=== PATIENT | male | born 1965 | race Caucasian/White ===

== ENCOUNTER 2016-11-17 12:01 | Emergency (ER) | payer BC | END 2016-11-17 13:20 | disposition left against medical advice (07) | LOC: UCCORT 12:01 | DX: R69 Illness, unspecified (principal); Z53.21 Procedure and treatment not carried out due to patient leaving prior to being seen by health care provider ==

== ENCOUNTER 2017-08-08 07:09 | Emergency (ER) | payer BC, OTHER ==
[2017-08-08 07:27] VITALS: BP 133/72
[2017-08-08] MEDS ORDERED: Indomethacin CAP* 25 MG CAP PO ONE (08:01)
--- NOTE | 2017-08-08 08:06 | ED ---
Lower Extremity - HPI Summary HPI Summary: 52 yr old male with the complaint of left foot 1st MP join pain . The onset of his symptoms were two days ago . It woke him from sleep. He recalls no traumatic events. he denies a prior history of gout, but he has a history of kidney stones. the patient denies fever, chills. His pain is worse with movement, and is at rest a 4/10. - History of Current Complaint Chief Complaint: UCLowerExtremity Stated Complaint: LEFT FOOT PAIN Time Seen by Provider: 08/08/17 07:31 - Allergies/Home Medications Allergies/Adverse Reactions: Allergies Allergy/AdvReac Type Severity Reaction Status Date / Time Sulfa Antibiotics Allergy Severe VOMITS/,PASSES Verified 08/08/17 07:16 OUT Home Medications: Home Medications Oneil Derm Patch 08/08/17 [History] Ibuprofen TAB* [Motrin TAB* 600 MG] 600 mg PO Q6H PRN 08/08/17 [History Confirmed 08/08/17] PMH/Surg Hx/FS Hx/Imm Hx Cardiovascular History: Reports: Other Cardiovascular Problems/Disorders - VARICOSE VEINS BOTH LEGS-SEE DR. JERRY Respiratory History: Reports: Hx Asthma - USE INHALER History: Reports: Hx Kidney Stones - left Sensory History: Denies: Hx Contacts or Glasses, Hx Hearing Aid Opthamlomology History: Denies: Hx Contacts or Glasses - Surgical History Surgery Procedure, Year, and Place: TONSILLECTOMY ,. 2006 LASIK SURGERY [facility], [place]. 2006 VASECTOMY, [facility]. 2013-STENT PLACEMENT- LEFT KIDNEY Hx Anesthesia Reactions: No Infectious Disease History: No Infectious Disease History: Denies: Traveled Outside the [place] in Last 30 Days - Social History Alcohol Use: Occasionally Substance Use Type: Reports: None Smoking Status (MU): Never Smoked Tobacco Review of Systems Constitutional: Negative Negative: Fever, Chills Positive: Other - left foot 1st mp pain All Other Systems Reviewed And Are Negative: Yes Physical Exam Triage Information Reviewed: Yes Vital Signs On Initial Exam: Initial Vitals Temp Pulse Resp BP 98.2 F 85 20 133/72 08/08/17 07:24 08/08/17 07:24 08/08/17 07:24 08/08/17 07:24 Vital Signs Reviewed: Yes Appearance: Positive: Well-Appearing, No Pain Distress Head/Face: Positive: Normal Head/Face Inspection Eyes: Positive: EOMI ENT: Positive: Normal ENT inspection Respiratory/Lung Sounds: Positive: Clear to Auscultation, Breath Sounds Present Cardiovascular: Positive: RRR. Negative: Murmur Abdomen Description: Positive: Nontender Musculoskeletal: Positive: Strength/ROM Intact, Other - there is mild redness to the left foot 1st MP area with slight tenderness. Minimal swelling. No cellulitis. Neurological: Positive: Sensory/Motor Intact, Alert, Oriented to Person Place, Time, CN Intact II-III Psychiatric: Positive: Normal - Bety Coma Scale Best Eye Response: 4 - Spontaneous Best Motor Response: 6 - Obeys Commands Best Verbal Response: 5 - Oriented Diagnostics - Vital Signs Vital Signs Temp Pulse Resp BP 08/08/17 07:24 98.2 F 85 20 133/72 - Laboratory Lab Statement: Any lab studies that have been ordered have been reviewed, and results considered in the medical decision making process. Lower Extremity Course/Dx - Course Course Of Treatment: 52 yr old with gout. Indomethacin, DC home, FU PMD. - Diagnoses Provider Diagnoses: Gout Discharge - Discharge Plan Condition: Good Disposition: HOME Prescriptions: Indomethacin CAP* [Indocin CAP*] 25 mg PO TID PRN #14 cap PRN Reason: Pain - Moderate Patient Education Materials: Gout (ED) Referrals: Rosemary Jensen MD [Primary Care Provider] - 3 Days
--- NOTE | 2017-08-08 08:25 | RAD ---
Indication: Pain at the LEFT foot first metatarsal phalangeal joint since August 05, 2017. Comparison: November 10, 2004 Technique: AP, lateral, and oblique views LEFT foot. Report: Negative for fracture or malalignment. Polyarticular osteoarthritis with credit resolution representative mild osteophytosis and joint space narrowing at the first metatarsal phalangeal joint with similar findings at the talocrural and transverse tarsal joint. Small Achilles tendon insertion and plantar fascia origin heel spurs. Unremarkable soft tissue contours. IMPRESSION: Negative for fracture or radiographic stigmata of stress reaction. Polyarticular mild osteoarthritis.
== END 2017-08-08 08:47 | disposition home or self-care (01) ==
LOC: UCCORT 07:09
DX: M10.9 Gout, unspecified (principal); J45.909 Unspecified asthma, uncomplicated; I83.93 Asymptomatic varicose veins of bilateral lower extremities; Z88.2 Allergy status to sulfonamides; Z87.442 Personal history of urinary calculi
CPT/HCPCS: 99212; A9270-GY; G0463

== ENCOUNTER 2019-05-10 05:46 | Day surgery (SDC) | payer BC ==
[~2019-05-10 05:46] MED LIST: Buffered Lidocaine 1% SYRIN* 1 ML/SYRINGE INTRADERM ONE
[2019-05-10] MEDS ORDERED: Lactated Ringers 1000 ML Bag* 1,000 ML IV SCH (06:00)
[2019-05-10] MEDS ORDERED: ceFAZolin 2 GM in NS PREMIX(*) 2 GM/100 ML BAG IVPB ONE (06:11)
[2019-05-10] MEDS ORDERED: Buffered Lidocaine 1% SYRIN* 1 ML/SYRINGE INTRADERM ONE (06:11)
[2019-05-10] MEDS ORDERED: ceFAZolin 1 GM ADVAN(*) 1 GM ADDV.VIAL IVPB ONE (06:11)
[2019-05-10] MEDS ORDERED: Midazolam* 1 MG/ML 2 ML VIAL (2 MG) ONE (07:08)
[2019-05-10] MEDS ORDERED: Lidocaine 2% PF * 5 ML VIAL ONE (07:08)
[2019-05-10] MEDS ORDERED: Propofol* 10 MG/ML 20 ML BTL ONE (07:08)
[2019-05-10] MEDS ORDERED: methylPREDNISolone ACETATE 80* 80 MG/ML 1 ML VIAL ONE (07:09)
[2019-05-10] MEDS ORDERED: Bupivacaine 0.5%* 50 ML VIAL ONE (07:09)
[2019-05-10] MEDS ORDERED: fentaNYL* 50 MCG/ML 2 ML VIAL (100 MCG VIAL) ONE ×2 (07:09→08:52)
[2019-05-10] MEDS ORDERED: EPINEPHRINE 1 MG/ML 1 ML VIAL ONE (07:09)
[2019-05-10] MEDS ORDERED: Succinylcholine* 20 MG/ML 10 ML VIAL ONE (07:33)
[2019-05-10] MEDS ORDERED: Ketorolac INJ* 30 MG/ML 1 ML VIAL ONE (07:43)
[2019-05-10] MEDS ORDERED: Ondansetron INJ* 2 MG/ML VIAL ONE (07:43)
[2019-05-10] MEDS ORDERED: Dexamethasone IV* 4 MG/ML 1 ML (4 MG) ONE (07:43)
[2019-05-10] MEDS ORDERED: Metoclopramide IV* 5 MG/ML 2 ML VIAL ONE (07:43)
[2019-05-10] MEDS ORDERED: Rocuronium* 10 MG/ML VIAL ONE (07:45)
[2019-05-10] MEDS ORDERED: oxyCODONE TAB* 5 MG TAB PO PRN (08:00)
[2019-05-10] MEDS ORDERED: DiMENhydriNATE IV* 50 MG/ML VIAL IV PUSH PRN (08:00)
[2019-05-10] MEDS ORDERED: Naloxone* 0.4 MG/ML 1 ML VIAL IV PRN (08:00)
[2019-05-10] MEDS ORDERED: Acetaminophen TAB* 325 MG PO PRN (08:00)
[2019-05-10] MEDS ORDERED: Sugammadex * 200 MG/2 ML VIAL IV PUSH ONE (08:27)
[2019-05-10] MEDS ORDERED: Acetaminophen TAB* 325 MG ONE (08:52)
[2019-05-10] MEDS ORDERED: oxyCODONE TAB* 5 MG TAB ONE (08:52)
[2019-05-10] MEDS: fentaNYL* 50 MCG/ML 2 ML VIAL (100 MCG VIAL) IV PRN ×3 (08:54→09:22)
[2019-05-10 10:09] VITALS: BP 147/94
--- NOTE | 2019-05-10 15:07 | OP ---
DATE OF OPERATION: 05/10/19 - [facility] DATE OF : [birth year] SURGEON: Nell Draper MD DEWATERER OPERATOR: OMA Heath. Ms. Duarte did help throughout the procedure with preparation of the leg, wound retraction, manipulation of the knee and wound closure. ANESTHESIOLOGIST: Dr. Banuelos. ANESTHESIA: General. PRE-OP DIAGNOSIS: Right knee medial meniscal tear, [id number] osteoarthritis. POST-OP DIAGNOSIS: Right knee medial meniscal tear, [id number] degenerative osteoarthritis. OPERATIVE PROCEDURE: Right knee arthroscopy with partial medial meniscectomy and patellofemoral chondroplasty. SPECIMEN: None. BRIEF HISTORY/INDICATIONS: Mr. Aguilar is a 54-year-old gentleman who developed severe right knee medial joint line pain. MRI confirmed medial meniscal tear. Due to continued pain and decreased quality of life and failure of conservative treatment, he elected to undergo right knee arthroscopy with partial meniscectomy, possible chondroplasty, possible synovectomy. The patient understood the risks of surgery included, but were not limited to bleeding, infection, damage to nearby structures, continued pain, need for further surgery , retear of meniscus, progression of arthritis, stroke, heart attack, blood clot and . He wished to proceed. INTRAOPERATIVE FINDINGS: Intraoperatively, the patient was noted to have a longitudinal and radial type tear in the posterior aspect of the medial meniscus with displacement into the joint line. There was a split fragment which did displace into the posterior joint line based on positioning. The patient had grade 3 cartilage flapping and fissuring. Grade 3 and 4 Outerbridge cartilage changes with exposed subchondral bone were also visualized along the majority of the weightbearing surface of the medial femoral condyle. DESCRIPTION OF PROCEDURE: Mr. Aguilar was identified in the preanesthesia unit. His right lower extremity was marked as the correct operative side. Informed consent was signed and placed in the chart. The patient was taken to the operating room and placed under anesthesia without complication. Right lower extremity was prepped and draped in the usual sterile fashion. Preop time-out was made to correctly identify the patient's side and site. Appropriate perioperative antibiotics were given within 1 hour of incision. A 0.5 cm anterolateral portal incision was made with a 10 blade and carried down to the capsule. Trocar was introduced. As soon as the light and water sources were turned on, there was immediate visualization of the suprapatellar pouch. A tour of the knee joint was performed. Suprapatellar pouch had no obvious abnormalities. Patellofemoral compartment showed grade 3 and 4 Outerbridge cartilage changes with exposed subchondral bone. There was cartilage flapping along the patellar facet. Medial gutter showed no significant plica or loose body. Medial compartment showed exposed subchondral bone along the medial femoral condyle. This was grade 3 and 4 Outerbridge cartilage changes. Radial and longitudinal tear visible in the posterior medial meniscus. There was a fragment that was displaced into the joint line and was highly mobile. ACL and PCL appeared to be intact. The knee was placed in a figure- of-four position. No obvious meniscal tear was visualized at the lateral meniscus. Lateral compartment had minimal degenerative changes. Lateral gutter had no obvious loose body or other abnormality. Under direct visualization, a medial portal incision was made. Radiofrequency ablation wand was used to smooth the fissures and cartilage flap along the medial patellar facet. This chondroplasty was performed conservatively. Straight biter and shaver were used to perform partial medial meniscectomy. A smooth border of the meniscus was obtained. medial meniscal with additional tears. The knee was copiously irrigated with sterile saline. All instruments were removed. Incisions were closed using 3-0 nylon suture. Intraarticular injection of 80 mg Depo-Medrol and 6 cc of 0.25% Marcaine was placed in the knee joint. The patient's incisions were covered with Xeroform, 4x4s, and Webril. ÁNGEL wrap and cold packs were placed over this. The patient' s anesthesia was reversed without difficulty. He was taken to the PACU in stable condition. Intended weightbearing will be weightbearing as tolerated. Intended DVT prophylaxis will be aspirin. [id number]/[facility] #: [id number] GAMALIEL
== END 2019-05-10 10:05 | disposition home or self-care (01) ==
LOC: OR 05:46
PROVIDERS: ATTEND Orthopaedic Surgery Adult Reconstructive Orthopaedic Surgery
DX: S83.241A Other tear of medial meniscus, current injury, right knee, initial encounter (principal); M17.11 Unilateral primary osteoarthritis, right knee; E66.01 Morbid (severe) obesity due to excess calories; J45.909 Unspecified asthma, uncomplicated; I83.90 Asymptomatic varicose veins of unspecified lower extremity; X58.XXXA Exposure to other specified factors, initial encounter; Y92.9 Unspecified place or not applicable
CPT/HCPCS: A9270-GY; J0330; J0690; J1040; J1100; J1885; J2250; J2405; J2704; J2765; J3010; J3490

== ENCOUNTER 2019-09-28 07:30 | Inpatient (IN) | payer BC ==
[~2019-09-28 07:30] MED LIST changes: +Famotidine IV* 10 MG/ML 2 ML (20 mg) IV ONE; +Lactated Ringers 1000 ML Bag* 1,000 ML IV SCH; +Levalbuterol 0.63MG/3ML NEB* UNIT OF USE INH ONE
[2019-09-28] MEDS ORDERED: ceFAZolin 1 GM ADVAN(*) 1 GM ADDV.VIAL IVPB ONE (08:10)
[2019-09-28] MEDS ORDERED: Levalbuterol 0.63MG/3ML NEB* UNIT OF USE INH ONE (08:10)
[2019-09-28] MEDS ORDERED: Heparin VIAL(*) 5000 UNITS/ML VIAL (FIVE THOUSAND) ONE (08:10)
[2019-09-28] MEDS ORDERED: Famotidine IV* 10 MG/ML 2 ML (20 mg) ONE (08:11)
[2019-09-28] MEDS ORDERED: ceFAZolin 2 GM in NS PREMIX(*) 2 GM/100 ML BAG IVPB ONE (08:11)
[2019-09-28] MEDS ORDERED: Buffered Lidocaine 1% SYRIN* 1 ML/SYRINGE INTRADERM ONE (08:11)
[2019-09-28] MEDS ORDERED: Lidocaine 2% PF * 5 ML VIAL ONE (08:46)
[2019-09-28] MEDS ORDERED: Dexamethasone IV* 4 MG/ML 1 ML (4 MG) ONE (08:46)
[2019-09-28] MEDS ORDERED: Propofol* 10 MG/ML 20 ML BTL ONE (08:46)
[2019-09-28] MEDS ORDERED: Ketorolac INJ* 30 MG/ML 1 ML VIAL ONE (08:46)
[2019-09-28] MEDS ORDERED: Ondansetron INJ* 2 MG/ML VIAL ONE ×2 (08:46→12:13)
[2019-09-28] MEDS ORDERED: KETAMINE HCL* 50 MG/ML 10 ML VIAL ONE (08:47)
[2019-09-28] MEDS ORDERED: fentaNYL* 50 MCG/ML 5 ML VIAL (250 MCG VIAL) ONE (08:47)
[2019-09-28] MEDS ORDERED: Midazolam* 1 MG/ML 5 ML VIAL (5 MG) ONE (08:47)
[2019-09-28] MEDS ORDERED: Rocuronium* 10 MG/ML VIAL ONE (08:47)
[2019-09-28] MEDS ORDERED: Sugammadex * 500 MG/5 ML VIAL IV PUSH ONE (08:48)
[2019-09-28] MEDS ORDERED: Bupivacaine 0.25% EPI 200,000* 30 ML SDV ONE (09:12)
[2019-09-28] MEDS ORDERED: Midazolam* 1 MG/ML 2 ML VIAL (2 MG) ONE (09:43)
[2019-09-28] MEDS ORDERED: Levalbuterol HFA INHALER* 1 PUFF MDI ONE (10:00)
[2019-09-28] MEDS ORDERED: fentaNYL* 50 MCG/ML 2 ML VIAL (100 MCG VIAL) ONE ×4 (10:23→12:35)
[2019-09-28] MEDS ORDERED: Metoprolol Tartrate IV* 1 MG/ML 5 ML VIAL ONE (10:37)
[2019-09-28] MEDS ORDERED: Glycopyrrolate IV* 0.2 MG/ML 1 ML VIAL ONE (11:23)
[2019-09-28] MEDS ORDERED: Neostigmine Methylsulfate* 1 MG/ML 10 ML VIAL (1 mg/ml) ONE (11:23)
[2019-09-28] MEDS ORDERED: HYDROmorphone INJ1* 1 MG/ML SYRINGE ONE (11:27)
[2019-09-28] MEDS ORDERED: HYDROmorphone INJ* 0.5 MG/0.5 ML SYRINGE IV SLOW PU PRN (11:43)
[2019-09-28] MEDS ORDERED: Ondansetron INJ* 2 MG/ML VIAL IV PRN ×2 (11:43→11:52)
[2019-09-28] MEDS ORDERED: HYDROmorphone INJ1* 1 MG/ML SYRINGE IV SLOW PU PRN (11:50)
[2019-09-28] MEDS ORDERED: Naloxone* 0.4 MG/ML 1 ML VIAL IV PRN (11:52)
[2019-09-28] MEDS ORDERED: Ketorolac INJ* 30 MG/ML 1 ML VIAL IV SCH ×2 (12:00→15:00)
[2019-09-28] MEDS: fentaNYL* 50 MCG/ML 2 ML VIAL (100 MCG VIAL) IV PRN ×4 (12:19→14:13)
[2019-09-28] MEDS ORDERED: diPHENhydraMINE IV* 50 MG/ML 1 ml VIAL (BENADRYL) ONE (12:33)
--- NOTE | 2019-09-28 12:42 | OP ---
CC: [facility]; Dr. Rosemary Jensen * DATE OF OPERATION: 09/28/2019 - ROOM #352 DATE OF : 1965. SURGEON: Dr. Max Colón. ECOLOGICAL ECONOMIST: Eleni Rowan NP. ANESTHESIOLOGIST: Dr. Uriel Sanchez. ANESTHESIA: General. PRE-OP DIAGNOSIS: Clinically severe obesity. POST-OP DIAGNOSIS: Clinically severe obesity. OPERATIVE PROCEDURE: Laparoscopic sleeve gastrectomy. ESTIMATED BLOOD LOSS: Less than 50 cc. FLUIDS: Crystalloid fluid given. See chart for details. DRAINS: None. SPECIMEN: Portion of the stomach. COMPLICATIONS: None. DESCRIPTION OF PROCEDURE: The patient was identified in the preoperative area, marked, and consent was signed. He was taken to the operating room and placed on the operating table in supine position. Preoperative antibiotics given. Sequential devices were placed in bilateral lower extremities. General anesthesia was induced. The patient's abdomen was clipped of hair and prepped and draped in a standard surgical fashion. Time-out was performed. Folds of the umbilicus were elevated anteriorly and a Veress needle inserted into the abdominal cavity which was then allowed to insufflate to a pressure of 50 mmHg. The patient tolerated insufflation well. [place] between the xiphoid and umbilicus, just to the left of midline, an optical 12 mm trocar was inserted. Laparoscope was inserted through this and there was no evidence of injury from the trocar insertion or from the Veress needle which was removed. Review of the abdomen showed a normal appearing liver. There was no free fluid. Additional trocar was placed in the following position, two 5 mm in the left upper quadrant and a 12 mm in the right upper quadrant. Table was placed in a steep reverse Trendelenburg. A Nathalie retractor was inserted through the subxiphoid incision and the liver was retracted anteriorly and to the right. With the retractor in, this exposed the gastroesophageal fat pad which was grasped and retracted towards the right lower quadrant. Both blunt and sharp dissection was carried out to expose the left chetan. Next, a retrogastric tunnel was made along the greater curvature, 5 cm from the pylorus and we took the vasculature of the greater curvature right up to the angle of His that had previously been dissected. Posterior attachments were similarly taken and hemostasis was excellent. We were able to rotated the stomach along its axis and then proceeded to perform the sleeve gastrectomy with the 60 mm purple GI stapling device with reinforcements strips. We performed this at the first staple line from approximately 5 cm from the pylorus heading up towards the incisura, but only firing this after a 40 Chinese bougie was placed by Anesthesia into the distal stomach. The bougie was hugged with additional staplers until the sleeve stomach was created. The staple line appeared intact without any twisting or corkscrewing. The crystal were all intact without any irregularity. The gastroesophageal fat pad was dissected medially, initially folded back over onto the staple line and was not involved in it. Next, the resected stomach portion was then placed in the endoscope retrieval bag and brought out through the right upper quadrant port site after dilating this. The defect was reapproximated with an 0-Vicryl suture using a Weck closure device. The Nathalie retractor was removed. Hemostasis was excellent. The abdomen was allowed to collapse. Trocars were removed under direct vision and all five skin incisions were reapproximated with 4-0 Monocryl subcuticular sutures, followed by Steri-Strips and sterile dressings. [id number]/[facility] #: [id number] GAMALIEL
[2019-09-28] MEDS ORDERED: PROCHLORPERAZINE INJ 5 MG/ML 2 ML VIAL ONE (13:51)
[2019-09-28] MEDS ORDERED: Scopolamine 1.5 mg* PATCH ONE (13:51)
[2019-09-28] MEDS: Lactated Ringers 1000 ML Bag* 1,000 ML IV SCH ×2 (14:34→20:59)
[2019-09-28] MEDS: Ketorolac INJ* 30 MG/ML 1 ML VIAL IV SCH (18:09)
[2019-09-28] MEDS: Famotidine IV* 10 MG/ML 2 ML (20 mg) IV SLOW PU SCH (20:55)
[2019-09-28] MEDS: Heparin VIAL(*) 5000 UNITS/ML VIAL (FIVE THOUSAND) SUBCUT SCH (22:56)
[2019-09-29] MEDS: Ketorolac INJ* 30 MG/ML 1 ML VIAL IV SCH ×4 (00:19→18:16)
[2019-09-29] MEDS: Lactated Ringers 1000 ML Bag* 1,000 ML IV SCH ×2 (03:57→11:12)
[2019-09-29] MEDS: Heparin VIAL(*) 5000 UNITS/ML VIAL (FIVE THOUSAND) SUBCUT SCH ×3 (06:09→22:28)
[2019-09-29] MEDS ORDERED: Influenza VAC *QUAD* 2019-20* 0.5 ML SYRINGE IM ONE (09:00)
[2019-09-29] MEDS: Famotidine IV* 10 MG/ML 2 ML (20 mg) IV SLOW PU SCH ×2 (09:20→20:35)
--- NOTE | 2019-09-29 09:24 | PN ---
Progress Note - Progress Note Date of Service: 09/29/19 SOAP: Subjective: [] Chandana is a pleasant 54 yo male POD #1 s/p laparoscopic sleeve gastrectomy. Pt states that he is ambulating frequently every 2 hours without difficulty. Pt is NPO. Pt denies passing flatus, no BM. He states current pain is minimal, located between shoulder blades and over right lateral trocar placement site. Rates pain as a 2/10. Denies bloating, abdominal pain, nausea, vomiting, wheezing, cough, SOB, chest pain. Objective: [] Vital Signs - 12 hr Temp Pulse Resp BP Pulse Ox 09/29/19 08:09 98.1 F 66 16 138/83 100 09/29/19 08:00 16 100 09/29/19 05:03 99 09/29/19 03:30 97.6 F 69 18 125/69 99 09/28/19 23:41 97.4 F 59 16 136/75 99 Intake & Output 09/28/19 09/29/19 09/29/19 22:59 06:59 14:59 Intake Total 677 362 5051 Output Total 650 1355 1125 Balance 278 -374 -17 Order Information: UPPER GI Accession Number: [id number] CPT: 43003 CPT II Codes: G9500 INDICATION: Status post gastric sleeve resection. Approximately 44 seconds of fluoroscopy time was used. Fluoroscopic and radiographic examination of the upper GI tract was performed. The study was performed utilizing water-soluble contrast material. The esophagus appears normal in anatomy and function. There appears to be a axial-type hiatal hernia. No evidence of extraluminal contrast is noted. The duodenal bulb and sweep appear unremarkable. IMPRESSION: No evidence of extraluminal contrast. A small fixed hiatal hernia is noted. No obstruction is noted. <Electronically signed by Carolynn Jain MD in OV> 09/29/19 1039 Dictated By: Carolynn Jain MD Dictated Date/Time: 09/29/19 1037 Transcribed Date/Time: 09/29/19 1037 Examination: General: NAD, resting comfortably in bed. Cardiovascular: Regular rate and rhythm. No murmur, rubs or gallops. Pulmonary: CTA throughout all lung tai, no wheezes rails or rhonchi. Abdomen: Normoactive bowel sounds, non-distended. Mild LUQ tenderness to palpation. No tenderness over trocar insertion sites. Peripheral Vascular: No peripheral edema. UE & LE Capillary refill <2 seconds b/ l. Calves soft, non-tender. Pedal and radial pulse 2+ b/l. Skin: Negative for rash, erythema, edema, warmth and signs of infection. Dressings intact with mild bleeding of the right lateral trocar insertion site. Assessment: [] POD #1 s/p laparoscopic sleeve gastrectomy Plan: [] Routine dressing changes. Advance diet as tolerated. Encourage frequent ambulation. <Brown Quintanilla - Last Filed: 09/29/19 14:56> - Progress Note SOAP: Agree with above Subjective:Pt seen and examined, ambulating well in halls, had nausea and vomited after drinking, liquid intake is small [] Objective: Vital Signs Temp 97.4 F 09/29/19 11:15 Pulse 58 09/29/19 15:19 Resp 16 09/29/19 15:19 BP 142/79 09/29/19 15:19 Pulse Ox 100 09/29/19 16:00 Intake & Output 09/28/19 09/29/19 09/29/19 18:59 06:59 18:59 Intake Total 2500 1909 1108 Output Total 200 1805 1125 Balance 2300 104 -17 Weight 279 lb Intake: IV Fluids 2500 1909 1098 LR 2500 1909 1098 Oral 0 10 Output: Urine 200 1805 1125 Other: # Bowel Movements 0 PEX: Gen: Looks well, in NAD Chest: CTA Abd: right abd dressing intact but blood stained under tegaderm. incisional tenderness remaining dressings C/D/I [] Assessment: POD 1 S/P lap Sleeve Gastrectomy, Sukhjinder clear diet not yet toleraterd , + Nausea earlier + Flatus [] Plan: Slowly increasing sukhjinder clear diet toward goal as tolerated, ambulate, IS, deep breathing. hold d/c, will reevaluate tomorrow pt agrees with this plan[] <Kevin Dyer - Last Filed: 09/29/19 17:32>
[2019-09-29] MEDS: D5W 1/2 NS KCl 20 Meq 1000 ML* 1,000 ML IV SCH ×2 (12:21→20:35)
[2019-09-30] MEDS: Ketorolac INJ* 30 MG/ML 1 ML VIAL IV SCH ×2 (00:43→05:34)
[2019-09-30] MEDS: D5W 1/2 NS KCl 20 Meq 1000 ML* 1,000 ML IV SCH (04:41)
[2019-09-30] MEDS: Heparin VIAL(*) 5000 UNITS/ML VIAL (FIVE THOUSAND) SUBCUT SCH (05:34)
[2019-09-30] MEDS: Famotidine IV* 10 MG/ML 2 ML (20 mg) IV SLOW PU SCH (07:30)
[2019-09-30 07:42] VITALS: BP 131/78
--- NOTE | 2019-09-30 10:14 | DS ---
CC: Primary Care Doctor; [facility] DATE OF ADMISSION: 09/28/2019. DATE OF DISCHARGE: 09/30/2019. HISTORY OF PRESENT ILLNESS: Mr. Aguilar is a 54-year-old gentleman worked up as an outpatient with cl inically severe obesity who presented on the same day of surgery and underwent a laparoscopic sleeve gastrectomy. Please see operative report for details. The patient was transferred to the PACU and then on to the Short Stay Surgical Unit where he maintain ed NPO status. By postoperative day one, he underwent an upper GI study. He was started on clears. He has some yadira sea throughout the day and this was treated. He had minimal pain. This was treated with narcotics a s needed. On postoperative day two, the patient was doing well, walking around the floor, passing gas. He had not had a bowel movement yet. He had minimal abdominal pain and no reflux. On the day of discharge, physical exam was performed. He was afebrile. Vital signs were stable. He was alert and oriented times three, in no apparent distress. HEENT: Normocephalic, atraumatic. Scl erae anicteric. Mucus membranes are moist. Lungs: Clear to auscultation bilaterally. Abdomen: Sof t, nondistended. Minimal tenderness. Dressing was removed. Mild ecchymosis of the right upper quad rant. No cellulitis. Steri-Strips in place. Extremities: Within normal limits. No calf tenderness . PLAN: Discharge home. Follow-up in the offices at [facility] on Thursday of next week. The patient has an appointment and is aware of this. He will resume all o f his previous medications, including Omeprazole. We have gone over the planned diet with him. Our academic affairs coordinator will reach out to him with a phone call over the weekend. The patient is aware of all of these things and he is discharged to home in stable condition. [id number]/[facility] #: [id number]
== END 2019-09-30 11:27 | disposition home or self-care (01) | DRG 403 ==
LOC: AA 07:51 → SSU 11:43
PROVIDERS: ADMIT Surgery; ATTEND Surgery
PROC: 0DB64Z3 Excision of Stomach, Percutaneous Endoscopic Approach, Vertical (ICD-10-PCS; principal; 2019-09-28 09:45)
DX: E66.01 Morbid (severe) obesity due to excess calories (principal); R11.0 Nausea; M10.9 Gout, unspecified; J45.909 Unspecified asthma, uncomplicated; M17.0 Bilateral primary osteoarthritis of knee; F32.9 Major depressive disorder, single episode, unspecified; Z68.41 Body mass index [BMI] 40.0-44.9, adult; Z87.442 Personal history of urinary calculi; Z88.2 Allergy status to sulfonamides; Z83.3 Family history of diabetes mellitus; Z72.89 Other problems related to lifestyle; Z23 Encounter for immunization
CPT/HCPCS: 43775; 74246; 88307; 90686; A9270-GY; J0690; J0780; J1100; J1170; J1200; J1644; J1885; J2250; J2405; J2704; J2710; J3010; J3490

== ENCOUNTER 2023-11-19 09:35 | Inpatient (IN) ==
[~2023-11-19 09:35] MED LIST changes: +Buffered Lidocaine 1% SYRIN 1 ml INTRADERM ONE; -Buffered Lidocaine 1% SYRIN* 1 ML/SYRINGE INTRADERM ONE; -Famotidine IV* 10 MG/ML 2 ML (20 mg) IV ONE; -Lactated Ringers 1000 ML Bag* 1,000 ML IV SCH; +Lactated Ringers 1000 ml BAG 1,000 ML IV SCH; -Levalbuterol 0.63MG/3ML NEB* UNIT OF USE INH ONE
[2023-11-19] MEDS ORDERED: Tranexamic Acid 1 GM/100ML BAG 2,000 MG/200 ML BAG IV ONE (10:23)
[2023-11-19] MEDS ORDERED: ceFAZolin 2 GM in NS PREMIX 2 GM/100 ML BAG IVPB ONE (10:24)
[2023-11-19 10:35] LABS: Rapid COVID-19 Molecular Undetected (Undetected)
[2023-11-19] MEDS ORDERED: Midazolam 2 mg/2 ml VIAL 1 mg/ml 2 ml VIAL (2 mg) ONE ×2 (10:40→10:41)
[2023-11-19] MEDS ORDERED: Ondansetron 4 mg VIAL 2 MG/ML 2 ml VIAL ONE (10:41)
[2023-11-19] MEDS ORDERED: Lidocaine 2% PF 5 ML VIAL ONE (10:41)
[2023-11-19] MEDS ORDERED: fentaNYL 100 mcg/2 ml 50 MCG/ML VIAL ONE (10:42)
[2023-11-19] MEDS ORDERED: ROPIVACAINE 5 MG/ML 30 ML BTL (0.5%) ONE ×2 (11:39→12:04)
[2023-11-19] MEDS ORDERED: KETAMINE HCL 10 MG/ML 20 ml VIAL (200 MG) ONE (12:32)
[2023-11-19] MEDS ORDERED: HYDROmorphone 1 MG/1 ML SYRINGE IV PRN (12:36)
[2023-11-19] MEDS ORDERED: Acetaminophen IV 1 GM/100ML 1,000 MG/100 ML BAG IV PRN (12:36)
[2023-11-19] MEDS ORDERED: Ondansetron 4 mg VIAL 2 MG/ML 2 ml VIAL IV PRN ×2 (12:36→15:58)
[2023-11-19] MEDS ORDERED: Naloxone 0.4 mg VIAL 0.4 mg/ml 1 ml VIAL IV PRN (12:36)
[2023-11-19] MEDS ORDERED: fentaNYL 100 mcg/2 ml 50 MCG/ML VIAL IV PRN (12:36)
[2023-11-19] MEDS ORDERED: Acetaminophen IV 1 GM/100ML 1,000 MG/100 ML BAG IV ONE (13:51)
[2023-11-19] MEDS ORDERED: Propofol 10 MG/ML 20 ML BTL ONE (14:50)
[2023-11-19] MEDS ORDERED: Morphine 2 MG/ML SYRINGE IV PRN (15:58)
[2023-11-19] MEDS ORDERED: Lactulose 30 ml UDC PO PRN (15:58)
[2023-11-19] MEDS ORDERED: Ondansetron ODT 4 mg TAB 4 MG TAB PO PRN (15:58)
[2023-11-19] MEDS ORDERED: Magnesium Hydroxide LIQ 30 ML UDC PO PRN (15:58)
[2023-11-19] MEDS: Lactated Ringers 1000 ml BAG 1,000 ML IV SCH (17:52)
[2023-11-19] MEDS: Magnesium Hydroxide LIQ 30 ML UDC PO SCH (22:25)
[2023-11-19] MEDS: ceFAZolin 1 GM ADVAN 1 GM in NS 0.9% 50 ML 50 ML IVPB SCH (22:25)
[2023-11-20] MEDS: Lactated Ringers 1000 ml BAG 1,000 ML IV SCH (03:52)
[2023-11-20 05:57] LABS: Platelet Count 180 10^3/uL (150-450)
[2023-11-20 06:10] LABS: Hematocrit 36.5 % (38-53); Hemoglobin 12.7 g/dL (13.2-16.3); Mean Platelet Volume 6.8 fL (7.5-11.2)
[2023-11-20 06:18] LABS: Calcium 8.2 mg/dL (8.6-10.3); Creatinine, Serum 0.84 mg/dL (0.67-1.17); Potassium 4.4 mmol/L (3.5-5.0); eGFR CKD-EPI 102.3 (>60)
[2023-11-20] MEDS: ceFAZolin 1 GM ADVAN 1 GM in NS 0.9% 50 ML 50 ML IVPB SCH ×2 (06:26→12:02)
[2023-11-20] MEDS: Magnesium Hydroxide LIQ 30 ML UDC PO SCH (08:16)
[2023-11-20] MEDS ORDERED: Vitamin THERAPEUTIC TAB PO SCH (09:00)
[2023-11-20] MEDS ORDERED: Influenza vaccine *QUAD* *2023-24* 0.5 ML SYRINGE IM ONE (09:00)
[2023-11-20 14:16] VITALS: BP 141/73
== END 2023-11-20 16:59 | disposition home or self-care (01) | DRG 302 ==
LOC: AA 09:35 → SSU 15:58
PROVIDERS: ADMIT Orthopaedic Surgery Adult Reconstructive Orthopaedic Surgery; ATTEND Orthopaedic Surgery Adult Reconstructive Orthopaedic Surgery